=== PATIENT | male | born 1965 | race Caucasian/White ===

== ENCOUNTER → 2018-03-12 07:16 | Outpatient (CLI) | payer BC, SELFPAY ==
[2018-03-12 08:05] LABS: Hemoglobin A1c 5.5 % (4.2-6.3)
[2018-03-12 08:06] LABS: ALB/GLOB Ratio 1.2 RATIO (0.9-2.4); AST(SGOT) 20 U/L (15-37); Alanine Aminotransfer ALT/SGPT 35 U/L (16-61); Albumin, Serum 3.8 g/dL (3.2-5.0); Alkaline Phosphatase 81 U/L (45-117); Anion Gap 3 (5-15); BUN 15 mg/dL (7-18); BUN/Creat Ratio 20.6 RATIO (10-20); Calcium,Total 9.1 mg/dL (8.5-10.1); Chloride 109 mmol/L (98-107); Cholesterol 132 mg/dL (200); Creatinine, Serum 0.73 mg/dL (0.70-1.30); EST Glomerular Filtration Rate 119 mL/min (>60); Est Glom Filt Rate - Afr Amer 145 mL/min (>60); Globulin 3.2 g/dL (2.2-4.2); Glucose 115 mg/dL (74-106); High Density Lipoprotein 40 mg/dL; PSA,Total - Annual Screen 1.81 ng/mL (0.00-4.00); Potassium 4.5 mmol/L (3.5-5.1); Sodium Level 141 mmol/L (136-145); Triglycerides 120 mg/dL; Very Low Density Lipoprotein 24 mg/dL (5-40)
== END ==
PROVIDERS: Family Provider Family Medicine; PCP Family Medicine; Visit Provider Family Medicine
DX: E78.5 Hyperlipidemia, unspecified (principal); R73.09 Other abnormal glucose; Z12.5 Encounter for screening for malignant neoplasm of prostate
CPT/HCPCS: 36415; 80053; 80061; 83036; 84153; G0103

== ENCOUNTER → 2020-06-10 15:54 | Outpatient (CLI) | payer BC, SELFPAY ==
--- NOTE | 2020-06-10 16:02 | CT_ITS ---
STUDY: CT ABDOMEN AND PELVIS WITH AND WITHOUT CONTRAST REASON FOR EXAM: Male, 55 years old. Hematuria RADIATION DOSAGE (If Supplied By Facility): CTDIvol = ( 26.11 ) mGy, DLP = ( 2690.61 ) mGycm TECHNIQUE: Transaxial images were obtained from the dome of the diaphragm to the symphysis pubis without oral contrast. 100 CC ISOVUE 300 was administered. Sagittal and coronal images were reconstructed. Individualized dose optimization techniques were used for this CT. COMPARISON: None. FINDINGS: There are no urinary calculi or hydronephrosis. There are no solid renal masses. Ureters and bladder are normal. Liver, spleen adrenals and pancreas are intact. Gallbladder is removed. There is gastric surgery, possibly bypass and graft. There is mid bowel surgical suture lines. There is no intestinal obstruction. There are degenerative changes in L4-L5 and L5-S1 discs. CT/CT Abd/Pelvis W/WO Contrast IMPRESSION: Unremarkable urinary system. Unremarkable abdomen. Electronically Signed: Danika Antoine, at 17:05 EDT Tel , Service support ,
== END ==
PROVIDERS: PCP Family Medicine; Referring Provider Urology; Visit Provider Urology
DX: R31.0 Gross hematuria (principal)
CPT/HCPCS: 74178; Q9967

== ENCOUNTER → 2021-05-16 16:34 | Outpatient (CLI) | payer BC, SELFPAY ==
[2014-07-17 07:47] VITALS: BMI 45.8
[2021-05-16 17:16] LABS: Hematocrit 43.1 % (40-54); Hemoglobin 14.2 g/dL (13.0-16.5); Mean Corp Hgb Conc 32.9 g/dL (32-36); Mean Corpuscular Hgb 26.5 pg (27.0-32.0); Mean Corpuscular Volume 80.6 fL (80-94); Mean Platelet Vol. 8.6 fl (6.2-12.0); Platelet Count 208 K/mm3 (150-450); RBC Distribution Width CV 12.7 % (11.6-14.6); RBC Distribution Width SD 36.6 fl (35.1-43.9); Red Blood Count 5.35 M/mm3 (4.6-6.2); White Blood Count 6.7 K/mm3 (4.4-11.0)
[2021-05-16 17:40] LABS: Anion Gap 3 (5-15); BUN 21 mg/dL (7-18); BUN/Creat Ratio 21.5 RATIO (10-20); Calcium,Total 8.9 mg/dL (8.5-10.1); Chloride 106 mmol/L (98-107); Creatinine, Serum 0.98 mg/dL (0.70-1.30); EST Glomerular Filtration Rate 84 mL/min (>60); Est Glom Filt Rate - Afr Amer 102 mL/min (>60); Glucose 118 mg/dL (74-106); Potassium 4.8 mmol/L (3.5-5.1); Sodium Level 139 mmol/L (136-145)
== END ==
PROVIDERS: PCP Family Medicine; Referring Provider Urology; Visit Provider Urology
DX: Z01.812 Encounter for preprocedural laboratory examination (principal); R97.20 Elevated prostate specific antigen [PSA]
CPT/HCPCS: 36415; 80048; 84153; 85027

== ENCOUNTER → 2021-07-31 09:57 | Outpatient (CLI) | payer BC, SELFPAY | PROVIDERS: PCP Family Medicine; Referring Provider Physician Assistant; Visit Provider Physician Assistant | DX: Z20.822 Contact with and (suspected) exposure to COVID-19 (principal) | CPT/HCPCS: 87635; U0005; U0003 ==

== ENCOUNTER 2021-10-19 06:26 | Day surgery (SDC) | payer BC, SELFPAY ==
--- NOTE | 2021-10-16 11:11 | EKG12_ITS ---
Test Reason : PREOP Blood Pressure : / mmHG Vent. Rate : 068 BPM Atrial Rate : 068 BPM P-R Int : 142 ms QRS Dur : 142 ms QT Int : 422 ms P-R-T Axes : 042 -39 010 degrees QTc Int : 448 ms Normal sinus rhythm Left axis deviation Right bundle branch block Abnormal ECG Confirmed by TRIXIE SINGER, NORMA ([id number]), tape editor CECILLE HOOPER ([id number]) on 10/17/2021 9:23:43 AM Referred By: Delgado Munoz Confirmed By:NORMA MARCUM MD
[2021-10-16 12:22] LABS: Hematocrit 39.1 % (40-54); Hemoglobin 12.8 g/dL (13.0-16.5); Mean Corp Hgb Conc 32.7 g/dL (32-36); Mean Corpuscular Hgb 25.9 pg (27.0-32.0); Mean Platelet Vol. 8.9 fl (6.2-12.0); Platelet Count 170 K/mm3 (150-450); RBC Distribution Width CV 13.2 % (11.6-14.6); RBC Distribution Width SD 37.2 fl (35.1-43.9); Red Blood Count 4.95 M/mm3 (4.6-6.2); White Blood Count 5.1 K/mm3 (4.4-11.0)
[2021-10-16 12:40] LABS: Anion Gap 5 (5-15); BUN 20 mg/dL (7-18); BUN/Creat Ratio 24.3 RATIO (10-20); Calcium,Total 8.2 mg/dL (8.5-10.1); Chloride 107 mmol/L (98-107); Creatinine, Serum 0.82 mg/dL (0.70-1.30); EST Glomerular Filtration Rate 102 mL/min (>60); Est Glom Filt Rate - Afr Amer 124 mL/min (>60); Glucose 95 mg/dL (74-106); Sodium Level 140 mmol/L (136-145)
[2021-10-19] VITALS (9 sets, daily range): BP systolic 105–124; BP diastolic 74–83; PULSE 74–87; RESP 16; TEMP 36–36.6; O2SAT 94–100; BMI 33.2
--- NOTE | 2021-10-19 | IMM_PTH ---
PATIENT: ALDO LACKEY LOC: [facility] – [place] U#:[id number] AGE/SX: 56/M ROOM: RE10/19/[address]: Dr. Delgado Munoz MD : 1965 BED: DIS: 10/19/2021 SPEC #: [id number] RECD: 10/23/21 12:30 STATUS: MIKE REQ #: [id number] PEDRO: 10/19/21 00:[address]: Delgado Munoz DEPT: IMMUNOHISTOCHEMISTRY RECD BY: Leticia Barnes ENTERED: 10/23/21 12:31 SP TYPE: IMMUNO OTHR DR: Dr. Dale Watt MD Tissues: Prostate, NOS Procedures: 34BE12 (add) P40 (add) 34BE12 (initial) PHYSICIAN & INSTITUTION [facility] [phone] SPECIMEN INFORMATION: Tissue Source: Prostate, TUR Clinical Info: BPH with outlet obstruction Specimen Number: [id number] #2 & 4 CPT code: 42271, 27786 x3 METHODOLOGY: Deparaffinized sections of prefer/formalin-fixed tissue or PAP/DQ stained slides are incubated with monoclonal/polyclonal antibodies/oligonucleotide probes. Localization is made via biotin free immunoperoxidase method. Appropriate controls are performed and reacted as expected. Results on target cell population are indicated in the following table: RESULTS: ANTIBODY / CLONE RESULT Block 2 34BE12 (34BE12) negative P40 (BC28) negative Block 4 34BE12 (34BE12) negative P40 (BC28) negative These tests were developed and their performance characteristics determined by [facility]. They may not have been cleared or approved by the U.S. Food and Drug Administration. The FDA has determined that such clearance or approval is not necessary. The above immunohistochemical/dualISH markers are ordered and reviewed by the Pathologist. INTERPRETATION: Prostate, TUR: Adenocarcinoma. BERNICE:omar 10/24/2021
[2021-10-19] MEDS: Lactated Ringers 1,000 ML 15 ML IV (07:01)
--- NOTE | 2021-10-19 08:14 | HP.PCM_ITS ---
HPI - General HPI Narrative ALDO LACKEY, is a 56 M who presents for a TURP, had a Urolift procedure which unfortunately did not work and not still has very slow stream and difficulty emptying bladder so plan to proceed with TURP risks wasDiscussed the risk of scar tissue along the urinary channel also the risk that the procedure will fail and not alleviate his urinary slow stream symptoms we talked about the risk of infection and also risk of bleeding regrowth of tissue no guarantees were made to the patient that this surgery will be successful he understands this he signed the consent form which also said there was no guarantees of success with the surgery. Patient after all his questions were addressed and explained how the procedure is done he will be brought to the operating room. [facility] Medical History (Updated 10/11/21 @ 10:00 by Kristie Moon) Cardiology follow-up encounter Diabetes Gastric reflux History of irregular heartbeat History of stress test Hypertension Non-smoker Prostate disease Syncope Wears glasses Home Medications ciprofloxacin HCl [Cipro] 500 mg PO BID #10 tab 10/19/21 [Rx Last Taken Unknown] Allergy/AdvReac Type Severity Reaction Status Date / Time Penicillins Allergy Anaphylaxis Verified 10/19/21 06:48 Surgical History (Updated 10/11/21 @ 10:00 by Kristie Moon) History of cardiac catheterization History of esophagogastroduodenoscopy (EGD) History of laparoscopic cholecystectomy History of vein stripping History of weight loss surgery Hx of bladder repair surgery Hx of colonoscopy Hx of hernia repair Hx of left knee surgery Hx of total knee arthroplasty Social History Smoking Status: Never smoker Vital Signs Vital Signs Vital Signs: 10/19/21 06:56 Temperature 97.8 F Temperature Source Temporal Pulse Rate 74 Respiratory Rate 16 Respiratory Pattern Normal Blood Pressure 124/79 H Blood Pressure Mean 94 Blood Pressure Source Monitor Blood Pressure Position Semi-Fowlers Blood Pressure Location Right Arm Pulse Ox 100 Oxygen Delivery Method Room Air Weight Weight: 102 kg Body Mass Index (BMI) 33.2 Results Lab / Micro Data Result Diagrams: 10/16/21 11:12 10/16/21 11:12
--- NOTE | 2021-10-19 08:19 | PCM.DC ---
Discharge Instructions Diet Discharge Diet: No restrictions Activity Discharge Activity: Return to Normal Activity and May Not Drive (while taking narcotic pain medications.) Dressing / Incision Call your doctor if you observe: Fever of 101 or Higher Follow Up Care Please Follow Up With: Delgado Munoz MD When: Call [phone] for an appointment Test Results: Test results from this visit will be discussed in further detail at your follow-up appointment, if applicable. Discharge Plan Admission Primary Reason for Your Visit: TURP Attending Provider: Delgado Munoz Primary Care Provider: Dale Watt Instructions Patient Instructions: CASSI Home Recovery Discharge Orders/Prescriptions Prescriptions: New ciprofloxacin HCl [Cipro] 500 mg tablet 500 mg PO BID Qty: 10 RF: 0 Discontinued doxazosin 4 mg Tablet 4 mg PO QHS RF: 0 Referrals / Follow Up: Delgado Munoz MD [STAFF PHYSICIAN] - Dale Watt MD [Primary Care Provider] - Disposition Disposition (needs filled in before D/C Order can be placed): Home, Self Care
--- NOTE | 2021-10-19 08:25 | PROS_PTH ---
PATIENT: ALDO LACKEY [place] [facility] [place][id number] AGE/SX: 56/M ROOM: RE10/19/[address]: Dr. Delgado Munoz MD : 1965 BED: DIS: 10/19/2021 SPEC #: [id number] RECD: 10/19/21 10:15 STATUS: MIKE REZari #: [id number] PEDRO: 10/19/21 08:[address]: Delgado Munoz DEPT: SURGICAL PATHOLOGY RECD BY: Rosi Davis ENTERED: 10/19/21 12:48 SP TYPE: TURP OTHR DR: Dr. Dale Watt MD Tissues: Prostate, NOS Procedures: Surgery Specimen Level IV HEADER OPERATION: Cysto, TUR prostate, Olympus PRE-OP DIAGNOSIS: BPH with outlet obstruction TISSUE SUBMITTED: Prostate tissue MICROSCOPIC DIAGNOSIS Prostate tissue, TUR: Prostatic adenocarcinoma. Benign prostatic hyperplasia, glandular and stromal type. See cancer summary in the comment section. SJ:omar 10/24/2021 COMMENT PROSTATE CANCER (TUR) SUMMARY: Procedure - transurethral resection of prostate (TURP) Histologic type ? acinar adenocarcinoma Histologic grade (Herminio Pattern) ? Grade group 1 (Herminio score 3+3=6) Tumor Quantitation (TUR specimens): Estimated (%) of prostatic tissue involved by tumor - <5% Number of positive chips - 3 Total number of chips - ~40 Periprostatic fat invasion ? not applicable Seminal vesicle invasion - not applicable Lymphvascular invasion ? not identified Perineural invasion ? not identified Additional pathologic findings ? benign prostatic hyperplasia, glandular and stromal type. - Chronic inflammation. Treatment effect ? no known presurgical therapy. The above summary is in compliance with [employer] (CAP) Cancer Protocols Checklist and [place] [employer] on Cancer (AJCC), Staging Manual, 8th Ed. Immunohistochemistry ([id number]) supports the above diagnosis. Case has been reviewed in consultation with Dr. Abreu who concurs with the above diagnosis. IDC:AM MICROSCOPIC DESCRIPTION Slides are reviewed. GROSS DESCRIPTION Received is one container labeled with the patient's name and designated prostate tissue. The specimen consists of multiple irregular fragments of pink-mccarthy, rubbery, soft tissue that in aggregate weigh 3.6 gm and measure in aggregate 3 x 3 x 1 cm. A metallic clip is also noted in the specimen. The entire specimen is submitted in four cassettes. The metallic clip is for gross only. / SJ:rg 10/19/21 TC:0 CPT: 66868
--- NOTE | 2021-10-19 09:27 | PCM.OPRPT ---
Report of Operation Date of Procedure: 10/19/21 Pre-Operative Diagnosis: bph with obstruciton Post-Operative Diagnosis: same Surgery/Procedure Performed:: TURP Description of Surgical Findings:: In the preoperative setting I discussed with the patient how the surgery would be done with expect afterwards. We discussed how a prostate resection is done and we discussed the risk of the surgery including, bleeding, infection, retrograde ejaculation, changes with ejaculation or intercourse,. We discussed the possibility that the resection of the prostate may not alleviate his urinary symptoms. We discussed the small risk of developing scar tissue along the urethral channel and strictures. We also discussed the chance of the prostate could grow back and he may need further surgery or treatment in the future for prostate problems. Patient was taken back to the operating room, timeout procedure was performed, he was identified and marked and placed on the operating room table. He underwent general anesthesia. He was placed in dorsolithotomy position. Penis and testicles were prepped and draped in usual sterile fashion. Went into the bladder using the visual obturator with a resectoscope. Once inside the bladder identified the right and left ureteral orifice. I then identified the prostate and the anatomy of the prostate. I marked out the area of the sphincter and the verumontanum was identified. I then proceeded with the prostate resection first resected the median lobe. And then resected the right lobe of the prostate. Then to resect the left lobe of the prostate. I then resected the apical tissue of the prostate. This was a complete resection of all obstructive tissue to improve voiding and relieve obstruction. I then made sure that there was no injury to the sphincter or the verumontanum was still intact. Also during the resection 4 urolift clips were removed. At the end of the resection all the chips were Ellik out of the bladder. I then identified the left and right ureteral orifice and these were confirmed to be in good position and effluxing and not injured. The resectoscope was removed, a 22 Green[place] catheter was placed into the bladder on continuous irrigation. And the urine was fairly light pink color and draining normally. He was taken back to the PACU in good condition. Surgeon: maria e Type of Anesthesia: General Drains: 20 fr grace Admit VTE Documentation VTE Present on Admission: No VTE Mechan Device Prophylaxis: SCD's VTE Pharm Prophylaxis ordered?: No
== END 2021-10-19 12:14 | disposition home or self-care (01) ==
LOC: SDC 06:26 → AC 08:12
PROVIDERS: Anesthesiology; PCP Family Medicine; Referring Provider Urology; Visit Provider Urology
PROC: (CPT 52601; principal; 2021-10-19 08:15)
DX: N40.1 Benign prostatic hyperplasia with lower urinary tract symptoms (principal); N13.8 Other obstructive and reflux uropathy; E11.9 Type 2 diabetes mellitus without complications; K21.9 Gastro-esophageal reflux disease without esophagitis; I10 Essential (primary) hypertension; I45.10 Unspecified right bundle-branch block
CPT/HCPCS: 52601; 36415; 80048; 85027; 88305; 88341; 88342; 93005; J7120

== ENCOUNTER 2021-12-04 16:26 | Outpatient (CLI) | payer BC, SELFPAY | END 2021-12-04 23:59 | disposition home or self-care (01) | LOC: LABSPEC 16:27 | PROVIDERS: PCP Family Medicine; Referring Provider Urology; Visit Provider Urology | DX: R31.0 Gross hematuria (principal) | CPT/HCPCS: 87077; 87086; 87088; 87186 ==